=== PATIENT | male | born 1950 ===

== ENCOUNTER → 2018-05-22 | Outpatient (REF) | LOC: ZZSLMC 12:00 | PROVIDERS: ATTEND Family Medicine | DX: C44.329 Squamous cell carcinoma of skin of other parts of face (principal) | CPT/HCPCS: 88305; 88344 ==

== ENCOUNTER → 2018-07-19 | Outpatient (REF) | LOC: ZZSLMC 12:50 | PROVIDERS: ATTEND Family Medicine | DX: Z02.9 Encounter for administrative examinations, unspecified (principal) | CPT/HCPCS: 88305 ==